=== PATIENT | female | born 1980 | race Caucasian/White ===

== ENCOUNTER 2020-01-02 13:36 | Emergency (ER) | payer MEDICAID ==
[~2020-01-02] VITALS: Ht 180.3 cm; Wt 100.1 kg
[~2020-01-02 13:36] MED LIST: GABA600T14 PO; METH10TA2 PO; MORP100T27 PO; SEPTRA
--- NOTE | 2020-01-02 14:10 | NUR ---
pt presents to ED with c/o multiple symptoms, present "for a long time, since I had pneumonia in october." pt states she has never received a covid test, pt states "my primary care provider has been evaluating me and doesn't think it's covid." pt reports cough, mild sob, headache, left leg pain, n/v and constipation since october. pt is a&ox4, neuro intact. bilateral grasp equal, no drift. cms intact to bilateral LE, no swelling or discoloration noted to either leg. pt is calm, speaking in full sentences without difficulty. pt seen by CANDELARIO Otero, awaiting labs and US at this time.
[2020-01-02 14:30] LABS: BASOPHILS % (AUTO) 1 % (0-1); EOSINOPHILS % (AUTO) 5 % (1-7); LYMPHOCYTES % (AUTO) 20 % (22-44); MEAN CORPUSCULAR HGB CONC 33.4 g/dL (32.4-35.8); MEAN PLATELET VOLUME 8.5 fL (7.4-10.4); MONOCYTES % (AUTO) 7 % (2-9); NEUTROPHILS % (AUTO) 68 % (42-75); PLATELET COUNT 301 x10^3/uL (130-400); RED BLOOD COUNT 4.74 x10^6/uL (3.82-5.3); RED CELL DISTRIBUTION WIDTH 13.9 % (9.6-15.2)
[2020-01-02] MEDS ORDERED: MAALOX/HYOSCYAMINE/LIDOCAINE 45 ML BTL PO ONE ×2 (14:30→22:00)
[2020-01-02 14:32] LABS: ALBUMIN 3.3 g/dL (3.4-5.0); ANION GAP 5 mmol/L (5-15); CALCIUM 9.1 mg/dL (8.5-10.1); CHLORIDE 105 mmol/L (98-107)
[2020-01-02 14:35] LABS: ALANINE AMINOTRANSFERASE 47 U/L (12-78); ALKALINE PHOSPHATASE 87 U/L (45-117); BILIRUBIN,TOTAL 0.5 mg/dL (0.2-1.0); CREATININE 0.97 mg/dL (0.55-1.02); TOTAL PROTEIN 7.3 g/dL (6.4-8.2)
[2020-01-02] MEDS ORDERED: MAALOX/HYOSCYAMINE/LIDOCAINE 45 ML BTL ONE ×2 (14:37→21:40)
[2020-01-02 14:39] LABS: MD NO
--- NOTE | 2020-01-02 14:45 | NUR ---
Report received from WYATT Marti. Plan of care discussed
--- NOTE | 2020-01-02 14:45 | NUR ---
report given to WYATT Valentino who is assuming care.
--- NOTE | 2020-01-02 15:03 | NUR ---
Patient placed on 3L NC due to desat to 85% while on RA. ERP notified
[2020-01-02] MEDS ORDERED: ALBUTEROL/IPRATROPIUM 2.5MG/0.5MG, 3 ML ONE (15:13)
--- NOTE | 2020-01-02 15:17 | NUR ---
Patient medicated per emar, tolerated well. Breathing treatment in progress
[2020-01-02] MEDS ORDERED: ALBUTEROL/IPRATROPIUM 2.5MG/0.5MG, 3 ML NPPB ONE (15:30)
--- NOTE | 2020-01-02 15:30 | NUR ---
Breathing treatment completed, patient reports improvement in breathing. Patient off oxygen at this time to test RA SPO2
--- NOTE | 2020-01-02 15:33 | NUR ---
Patient desat to 87-88% on RA. Placed on 2L nC, up to 93%
--- NOTE | 2020-01-02 16:30 | NUR ---
PATIENT RESTING ON GURNEY, RESPIRATIONS EVEN AND UNLABORED, MONITORING IN PLACE, VSS, NADN
[2020-01-02] MEDS ORDERED: ONDANSETRON 2MG/ML, 2ML IVPush PRN (17:00)
[2020-01-02] MEDS: ALBUTEROL-IPRATROPIUM MDI INH INH SCH ×2 (17:00→23:00)
[2020-01-02] MEDS ORDERED: ACETAMINOPHEN 325 MG TABLET PO PRN (17:00)
[2020-01-02] MEDS ORDERED: ENALAPRILAT 1.25 MG/ML, 2ML IVPush PRN (17:00)
[2020-01-02] MEDS ORDERED: KETOROLAC 30 MG/1 ML IV PRN (17:00)
[2020-01-02] MEDS ORDERED: ENOXAPARIN 40 MG/0.4 ML SQ SCH (17:00)
--- NOTE | 2020-01-02 17:26 | NUR ---
COVID SWAB COMPLETED, WALKED TO LAB
[2020-01-02 17:50] LABS: HCT (SEDRATE) 43.1 % (34.6-47.8); INTERNATIONAL NORMALIZED RATIO 1.03 (0.93-1.1); PROTHROMBIN TIME 10.6 Seconds (9.6-11.5)
[2020-01-02 18:00] LABS: C-REACTIVE PROTEIN, QUANT 2.96 mg/dL (0.02-0.49); TROPONIN I < 0.015 ng/mL (0.000-0.045)
--- NOTE | 2020-01-02 18:30 | NUR ---
MEAL TRAY ORDERED. PATIENT SLEEPING ON GURNEY, RESPIRATIONS EVEN AND UNLABORED. LELA WEINBERG
--- NOTE | 2020-01-02 18:31 | NUR ---
CALL PLACED TO HOUSEKEEPING TO GET HOSPITAL BED
--- NOTE | 2020-01-02 18:51 | NUR ---
PATIENT AMBULATORY IN ROOM UP TO COMMODE. TOLERATED ACTIVITY WELL. MONITORING BACK IN PLACE, VSS
--- NOTE | 2020-01-02 19:15 | NUR ---
MEAL TRAY DELIVERED
--- NOTE | 2020-01-02 19:50 | NUR ---
PATIENT TRANSFERRED TO HOSPITAL BED
--- NOTE | 2020-01-02 21:00 | NUR ---
PATIENT SLEEPING, RESPIRATIONS EVEN AND UNLABORED. VSLELA Campa. CALL LIGHT IN REACH
--- NOTE | 2020-01-02 21:39 | NUR ---
SPOKE WITH DR. BARBOZA ABOUT PATIENT'S C/O HEARTBURN. THIS RN TO GIVE GI COCKTAIL AND PEPCID.
[2020-01-02] MEDS ORDERED: ONDANSETRON 2MG/ML, 2ML ONE (21:42)
[2020-01-02] MEDS ORDERED: FAMOTIDINE 20 MG TABLET PO ONE (22:00)
[2020-01-02] MEDS ORDERED: FAMOTIDINE 20 MG/2 ML ONE (22:03)
--- NOTE | 2020-01-02 22:05 | NUR ---
Leonila carroll in EDM - 01/02/20 at 2206 by SELVIN PATIENT MEDICATED PER EMAR WITH PEPCID AND GI COCKTAIL PER VERBAL ORDERS FROM HOSPITALIST DR. BARBOZA FOR C/O HEARTBURN
--- NOTE | 2020-01-02 22:06 | NUR ---
PATIENT MEDICATED PER EMAR WITH ZOFRAN AND GI COCKTAIL PER VERBAL ORDERS FROM HOSPITALIST DR. BARBOZA FOR C/O HEARTBURN. PATIENT DID NOT WISH TO HAVE PEPCID AT THIS TIME HEARTBURN HAD RESOLVED WITH PREVIOUS MEDICATIONS
[2020-01-02] MEDS ORDERED: FAMOTIDINE 20 MG/2 ML IVPush ONE (22:30)
--- NOTE | 2020-01-02 23:20 | NUR ---
PATIENT SLEEPING, RESPIRATIONS EVEN AND UNLABORED. VSS, ROSAN. CALL LIGHT IN REACH, MONITORING IN PLACE
--- NOTE | 2020-01-03 00:30 | NUR ---
PATIENT SLEEPING, RESPIRATIONS EVEN AND UNLABORED. VSS, NADN, MONITORING IN PLACE, CALL LIGHT IN REACH
--- NOTE | 2020-01-03 01:30 | NUR ---
PATIENT SLEEPING, RESPIRATIONS EVEN AND UNLABORED. VSS, NADN, MONITORING IN PLACE, CALL LIGHT IN REACH
--- NOTE | 2020-01-03 02:16 | NUR ---
PATIENT SLEEPING, RESPIRATIONS EVEN AND UNLABORED. VSS, NADN, MONITORING IN PLACE, CALL LIGHT IN REACH
--- NOTE | 2020-01-03 02:52 | NUR ---
Report received from WYATT Valentino. This RN to assume care.
--- NOTE | 2020-01-03 03:16 | NUR ---
Patient sleeping in hospital bed. Respirations even and unlabored. No interventions needed at this time.
[2020-01-03] MEDS: ALBUTEROL-IPRATROPIUM MDI INH INH SCH ×2 (05:00→12:10)
[2020-01-03 05:26] LABS: BASOPHILS % (AUTO) 0 % (0-1); EOSINOPHILS % (AUTO) 0 % (1-7); LYMPHOCYTES % (AUTO) 14 % (22-44); MEAN CORPUSCULAR HEMOGLOBIN 31.2 pg (27.0-34.8); MEAN CORPUSCULAR HGB CONC 33.2 g/dL (32.4-35.8); MEAN PLATELET VOLUME 8.9 fL (7.4-10.4); MONOCYTES % (AUTO) 4 % (2-9); NEUTROPHILS % (AUTO) 82 % (42-75); PLATELET COUNT 288 x10^3/uL (130-400); RED BLOOD COUNT 4.69 x10^6/uL (3.82-5.3); RED CELL DISTRIBUTION WIDTH 13.8 % (9.6-15.2)
[2020-01-03 05:29] LABS: MD NO
[2020-01-03 05:37] LABS: ALANINE AMINOTRANSFERASE 42 U/L (12-78); ALBUMIN 3.1 g/dL (3.4-5.0); ANION GAP 6 mmol/L (5-15); CALCIUM 9.7 mg/dL (8.5-10.1); CHLORIDE 105 mmol/L (98-107); CREATININE 0.95 mg/dL (0.55-1.02)
[2020-01-03 05:47] LABS: ALKALINE PHOSPHATASE 91 U/L (45-117); BILIRUBIN,TOTAL 0.3 mg/dL (0.2-1.0); TOTAL PROTEIN 7.3 g/dL (6.4-8.2)
--- NOTE | 2020-01-03 06:37 | NUR ---
Assisted patient to bedside commode with no incidents.
--- NOTE | 2020-01-03 06:43 | NUR ---
Report given to WYATT Peterson. Patient care transferred.
[2020-01-03] MEDS ORDERED: methylPREDNISolone SOD SUCC 40 MG/ML IVPush SCH (09:00)
[2020-01-03] MEDS ORDERED: SENNA/DOCUSATE TABLET PO SCH (09:00)
[2020-01-03] MEDS ORDERED: methylPREDNISolone SOD SUCC 125 MG/2 ML ONE (10:07)
[2020-01-03 10:24] LABS: FREE T4 (FREE THYROXINE) 1.27 ng/dL (0.76-1.46)
--- NOTE | 2020-01-03 10:45 | NUR ---
FOOD TRAL PROVIDED. PT EDUCATED ON REASON FOR ADM. PT REQUESTED TO SEE . NOTIFIED.
[2020-01-03 12:04] VITALS: BP 111/53
--- NOTE | 2020-01-03 12:07 | NUR ---
HOSPITALIST AT BEDSIDE. PT BEING RUDE TO MD AND THIS RN. MD ATTEMPTING TO DISCUSS POC AND PT CONSISTENTLY INTERRUPTS MD. PT CONCERNED ABOUT LUMP ON HER HEAD, WHEN THIS RN ASSESSED LUMP AND ATTMEPTED TO DISCUSS FINDINGS, PT STATES "OK. I'M WRONG".
[2020-01-03] MEDS ORDERED: DOXYCYCLINE 50 MG/5 ML ORAL SUSP PO SCH (12:15)
[2020-01-03] MEDS ORDERED: DOXYCYCLINE 100MG TABLET ONE (12:34)
--- NOTE | 2020-01-03 12:44 | NUR ---
PT REQUESTING TO LEAVE AMA. PIV REMOVED. PT BECOMING AGITATED ASKING QUESTIONS. THIS RN UNABLE TO ANSWER QUESTIONS ABOUT EVENTS THAT TRANSPIRED PRIOR TO THIS RN ASSUMING CARE. PT FEELS SHE HAS GOTTEN BAD TREATEMENT. CHIEF ANALYTICS OFFICER COMING TO TALK WITH PT.
--- NOTE | 2020-01-03 13:11 | NUR ---
PT YELLING AND CONFRONTATIONAL WHEN THIS RN ENTERED ROOM. PT DEMANDING TO TALK TO TAPPER SUPERVISOR PRIOR TO LEAVING.
--- NOTE | 2020-01-03 14:05 | NUR ---
PT LEFT AMA WITH ALL HER BELONGINGS. PT REFUSED TO SIGN AMA PAPERWORK. PT AMBULATED WITH STEADY GAIT.
[2020-01-03] MEDS ORDERED: DOXYCYCLINE 100MG CAP PO SCH (21:00)
== END 2020-01-03 14:06 | disposition left against medical advice (07) ==
LOC: ED 13:58 → SUATTDRO 16:00 → UNDOADMIN 01-03 00:29 → EDIP 01-03 00:29 → ED 01-03 14:06
PROVIDERS: ATTEND Hospitalist
DX: J40 Bronchitis, not specified as acute or chronic (principal); Z20.828 Contact with and (suspected) exposure to other viral communicable diseases; J96.00 Acute respiratory failure, unspecified whether with hypoxia or hypercapnia; R10.84 Generalized abdominal pain; F17.210 Nicotine dependence, cigarettes, uncomplicated; Z90.49 Acquired absence of other specified parts of digestive tract; Z90.710 Acquired absence of both cervix and uterus
CPT/HCPCS: 36415; 71045; 76700; 80053; 82728; 83690; 84439; 84443; 84481; 84484; 85025; 85610; 85613; 85651; 85670; 85705; 85732; 86038; 86140; 86147; 86226; 86235; 87635; 87806; 93005; 94640; 96374; 96375; 99285; 99406; J2405; J2920; J7512; G0475